=== PATIENT | female | born 1980 | race Caucasian/White ===

== ENCOUNTER 2019-09-07 12:22 | Emergency (ER) | payer BC ==
[~2019-09-07] VITALS: Ht 160 cm; Wt 64.2 kg
[2019-09-07 12:27] VITALS: BP 93/59
== END 2019-09-07 13:41 | disposition home or self-care (01) ==
LOC: ED 13:15
DX: O36.8120 Decreased fetal movements, second trimester, not applicable or unspecified (principal); Z3A.19 19 weeks gestation of pregnancy
CPT/HCPCS: 99281

== ENCOUNTER 2020-01-26 07:28 | Inpatient (IN) | payer BC ==
[~2020-01-26] VITALS: Ht 160 cm; Wt 73.0 kg
[2020-01-26] MEDS: LACTATED RINGERS 1,000 ML IV SCH (22:23)
[2020-01-26] MEDS ORDERED: AMPICILLIN 2 GM in SODIUM CHLORIDE 0.9% 100 ML IVPB STA (22:23)
[2020-01-26] MEDS ORDERED: OXYTOCIN 30U/ 0.9% NaCL 500ML 500 ML IV PRN (22:23)
[2020-01-26] MEDS ORDERED: D5%-LACTATED RINGERS 1,000 ML IV SCH (22:23)
[2020-01-26] MEDS ORDERED: OXYTOCIN 30U/ 0.9% NaCL 500ML 500 ML IV ONE (22:23)
[2020-01-26] MEDS ORDERED: AMPICILLIN 1 GM in SODIUM CHLORIDE 0.9% 50 ML IVPB SCH (22:30)
[2020-01-26] MEDS ORDERED: CALCIUM CARBONATE 500 MG TAB.CHEW PO PRN (22:30)
[2020-01-26] MEDS ORDERED: ONDANSETRON 2MG/ML, 2ML IVPush PRN (22:30)
[2020-01-26] MEDS ORDERED: MISOPROSTOL 25 MCG TABLET VG PRN (22:30)
[2020-01-26] MEDS ORDERED: SODIUM CHLORIDE FLUSH 10ML SYR IVF PRN (22:30)
[2020-01-26] MEDS ORDERED: FENTANYL PF 100 MCG/2ML IV PRN (22:30)
[2020-01-26] MEDS ORDERED: TERBUTALINE 1 MG/ML, 1ML IVPush PRN (22:30)
[2020-01-26] MEDS ORDERED: SODIUM CITRATE/CITRIC ACID 30 ML UDC PO PRN (22:30)
[2020-01-26] MEDS ORDERED: TERBUTALINE 1 MG/ML, 1ML SQ PRN (22:30)
[2020-01-26] MEDS ORDERED: METOCLOPRAMIDE 5 MG/ML, 2ML IVPush PRN (22:30)
[2020-01-26] MEDS ORDERED: ALUMINUM/MAG/SIMETHICONE 30 ML UDC PO PRN (22:30)
[2020-01-26 22:58] VITALS: BP 102/76
[2020-01-26 22:58] LABS: BASOPHILS # (AUTO) 0.02 x10^3/uL (0-0.1); BASOPHILS % (AUTO) 0 % (0-1); EOSINOPHILS # (AUTO) 0.07 x10^3/uL (0-0.4); EOSINOPHILS % (AUTO) 1 % (1-7); LYMPHOCYTES # (AUTO) 1.94 x10^3/uL (1-3.4); LYMPHOCYTES % (AUTO) 17 % (22-44); MD NO; MEAN CORPUSCULAR HEMOGLOBIN 31.3 pg (27.0-34.8); MEAN CORPUSCULAR HGB CONC 33.6 g/dL (32.4-35.8); MEAN CORPUSCULAR VOLUME 93.1 fL (80-100); MEAN PLATELET VOLUME 10.2 fL (7.4-10.4); MONOCYTES # (AUTO) 0.74 x10^3/uL (0.2-0.8); MONOCYTES % (AUTO) 7 % (2-9); NEUTROPHILS # (AUTO) 8.61 x10^3/uL (1.8-6.8); NEUTROPHILS % (AUTO) 76 % (42-75); PLATELET COUNT 178 x10^3/uL (130-400); RED BLOOD COUNT 4.24 x10^6/uL (3.82-5.3); RED CELL DISTRIBUTION WIDTH 12.5 % (9.6-15.2)
[2020-01-26] MEDS ORDERED: PLEASE ENTER HEIGHT AND WEIGHT MC SCH (23:00)
[2020-01-26 23:06] VITALS: BP 102/76
[2020-01-26] MEDS ORDERED: OXYTOCIN 30U/ 0.9% NaCL 500ML 500 ML ONE (23:07)
[2020-01-26] MEDS ORDERED: MISOPROSTOL 25 MCG TABLET ONE (23:07)
[2020-01-27] MEDS ORDERED: FENTANYL/BUPIV./NS/PF 250 ML EPIDCONT SCH (01:32)
[2020-01-27] MEDS ORDERED: FENTANYL PF 500 MCG, BUPIVACAINE/PF 0.5%, 30ML 62.5 ML in SODIUM CHLORIDE 0.9% 177.5 ML EPIDCONT SCH (02:00)
[2020-01-27] MEDS ORDERED: FENTANYL PF 100 MCG/2ML ONE ×2 (03:15→07:57)
[2020-01-27] MEDS: FENTANYL PF 100 MCG/2ML IVPush PRN ×2 (03:19→07:59)
[2020-01-27] MEDS: LACTATED RINGERS 1,000 ML IV SCH (08:01)
[2020-01-27] MEDS ORDERED: OXYTOCIN 30U/ 0.9% NaCL 500ML 500 ML IV SCH (10:06)
[2020-01-27] MEDS: OXYTOCIN 30U/ 0.9% NaCL 500ML 500 ML IV SCH ×2 (10:09→20:09)
[2020-01-27] MEDS ORDERED: DOCUSATE 100 MG CAPSULE ONE (10:12)
[2020-01-27] MEDS ORDERED: IBUPROFEN 600 MG TABLET ONE (10:12)
[2020-01-27] MEDS ORDERED: PRENATAL VIT/IRON/FA 1 EACH TABLET ONE (10:12)
[2020-01-27] MEDS: IBUPROFEN 600 MG TABLET PO PRN ×2 (10:15→16:06)
[2020-01-27] MEDS ORDERED: METOCLOPRAMIDE 5 MG/ML, 2ML IV PRN (10:30)
[2020-01-27] MEDS ORDERED: ONDANSETRON 2MG/ML, 2ML IV PRN ×2 (10:30)
[2020-01-27] MEDS ORDERED: DOCUSATE 100 MG CAPSULE PO PRN (10:30)
[2020-01-27] MEDS ORDERED: TRANEXAMIC ACID 100 MG/ML, 10ML IV ONE (10:30)
[2020-01-27] MEDS ORDERED: MISOPROSTOL 200 MCG TABLET PR PRN (10:30)
[2020-01-27] MEDS ORDERED: PRENATAL VIT/IRON/FA 1 EACH TABLET PO SCH (10:30)
[2020-01-27] MEDS ORDERED: SIMETHICONE 80 MG CHEW TAB PO PRN ×2 (10:30)
[2020-01-27] MEDS ORDERED: ACETAMINOPHEN 325 MG TABLET PO PRN ×2 (10:30)
[2020-01-27] MEDS ORDERED: OXYcodone/APAP 5/325MG TABLET PO PRN ×4 (10:30)
[2020-01-27] MEDS ORDERED: TRANEXAMIC ACID 1,000 MG in SODIUM CHLORIDE 0.9% 100 ML IVPB ONE (11:00)
[2020-01-27] MEDS: HYDROcodone/APAP 5/325 TABLET PO PRN ×2 (12:35→19:18)
[2020-01-27 12:54] VITALS: BP 114/74
[2020-01-27 16:07] VITALS: BP 99/64
[2020-01-27 17:29] LABS: BASOPHILS # (AUTO) 0.07 x10^3/uL (0-0.1); BASOPHILS % (AUTO) 0 % (0-1); EOSINOPHILS # (AUTO) 0.04 x10^3/uL (0-0.4); EOSINOPHILS % (AUTO) 0 % (1-7); LYMPHOCYTES % (AUTO) 10 % (22-44); MD NO; MEAN CORPUSCULAR HEMOGLOBIN 31.5 pg (27.0-34.8); MEAN CORPUSCULAR HGB CONC 33.6 g/dL (32.4-35.8); MEAN CORPUSCULAR VOLUME 93.7 fL (80-100); MEAN PLATELET VOLUME 10.7 fL (7.4-10.4); MONOCYTES # (AUTO) 0.66 x10^3/uL (0.2-0.8); MONOCYTES % (AUTO) 4 % (2-9); NEUTROPHILS # (AUTO) 14.21 x10^3/uL (1.8-6.8); NEUTROPHILS % (AUTO) 85 % (42-75); PLATELET COUNT 172 x10^3/uL (130-400); RED CELL DISTRIBUTION WIDTH 12.7 % (9.6-15.2)
[2020-01-27] MEDS: DOCUSATE 100 MG CAPSULE PO PRN (19:17)
[2020-01-27 20:00] VITALS: BP 105/65
[2020-01-28] MEDS: IBUPROFEN 600 MG TABLET PO PRN (00:43)
[2020-01-28 00:52] VITALS: BP 112/68
[2020-01-28 04:58] VITALS: BP 107/65
[2020-01-28] MEDS: OXYTOCIN 30U/ 0.9% NaCL 500ML 500 ML IV SCH ×2 (06:09→16:09)
[2020-01-28 08:33] VITALS: BP 93/58
[2020-01-28] MEDS: PRENATAL VIT/IRON/FA 1 EACH TABLET PO SCH (09:15)
[2020-01-28] MEDS: DOCUSATE 100 MG CAPSULE PO PRN (09:15)
[2020-01-28] MEDS: HYDROcodone/APAP 5/325 TABLET PO PRN (14:43)
[2020-01-28 21:00] VITALS: BP 113/79
[2020-01-29] MEDS: IBUPROFEN 600 MG TABLET PO PRN (04:50)
[2020-01-29 08:00] VITALS: BP 97/67
[2020-01-29] MEDS: DOCUSATE 100 MG CAPSULE PO PRN (08:32)
[2020-01-29] MEDS: HYDROcodone/APAP 5/325 TABLET PO PRN ×2 (08:32→08:40)
[2020-01-29] MEDS: PRENATAL VIT/IRON/FA 1 EACH TABLET PO SCH (08:32)
[2020-01-29] MEDS ORDERED: IBUP-1222 PO ×2 (09:24→09:25)
== END 2020-01-29 09:50 | disposition home or self-care (01) | DRG 807 ==
LOC: LDIP 22:21 → 2NW 01-27 12:33
PROVIDERS: ADMIT Obstetrics & Gynecology; ATTEND Obstetrics & Gynecology
PROC: 10E0XZZ Delivery of Products of Conception, External Approach (ICD-10-PCS; principal; 2020-01-27)
PROC: 3E0P7VZ Introduction of Hormone into Female Reproductive, Via Natural or Artificial Opening (ICD-10-PCS; 2020-01-27)
DX: O99.824 Streptococcus B carrier state complicating childbirth (principal); Z37.0 Single live birth; Z3A.39 39 weeks gestation of pregnancy; Z90.49 Acquired absence of other specified parts of digestive tract
CPT/HCPCS: 36415; S0020; 85025; 86592; 86850; 86900; G0378; J0290; J3010; J7050; J7120